=== PATIENT | female | born 1970 | race Caucasian/White ===

== ENCOUNTER 2018-02-19 23:15 | Emergency (ER) | payer BC, MEDICAID ==
[2018-02-19] MEDS ORDERED: Acetaminophen TAB* 325 MG PO ONE (23:32)
[2018-02-19] MEDS ORDERED: Ibuprofen TAB* 800 MG PO ONE (23:32)
--- NOTE | 2018-02-19 23:33 | ED ---
HPI Febrile Illness - HPI Summary HPI Summary: 48 year old female presents with fever today. Mom was just diagnosed with flu and she was present in the ER with her mom all day. She states she went home and started develop a cough and fever. She feels like she got hit by a train. She admits to muscle aches and nausea. She admits to headache. She admits to dizziness. States she's had no appetite. She denies any bowel pain. Cough is productive. She denies any chest pain or shortness breath. She has no medical conditions. She did not get a flu shot this year. has only had a couple hours of symptoms. took some robitussin. - History of Current Complaint Chief Complaint: EDFluSymptoms Time Seen by Provider: 02/19/18 23:24 Pain Intensity: 8 - Allergy/Home Medications Allergies/Adverse Reactions: Allergies Allergy/AdvReac Type Severity Reaction Status Date / Time raspberry Allergy Anaphylatic Verified 02/19/18 23:16 Shock strawberry Allergy Anaphylatic Verified 02/19/18 23:16 Shock PMH/Surg Hx/FS Hx/Imm Hx Endocrine/Hematology History: Denies: Hx Anticoagulant Therapy Cardiovascular History: Denies: Hx Myocardial Infarction History: Reports: Other Problems/Disorders - Per pt, painful menses, and "two large tumor". Infectious Disease History: No Infectious Disease History: Denies: Traveled Outside the [place] in Last 30 Days - Family History Known Family History: Positive: None Family History: Reviewed and n/c. - Social History Alcohol Use: Occasionally Hx Substance Use: No Substance Use Type: Reports: None Smoking Status (MU): Never Smoked Tobacco Review of Systems Positive: Fever Positive: Cough Positive: Nausea. Negative: Vomiting Positive: Myalgia Positive: Headache All Other Systems Reviewed And Are Negative: Yes Physical Exam Triage Information Reviewed: Yes Vital Signs On Initial Exam: Initial Vitals Temp Pulse Resp BP Pulse Ox 102.4 F 67 18 142/92 97 02/19/18 23:15 02/19/18 23:15 02/19/18 23:15 02/19/18 23:15 02/19/18 23:15 Vital Signs Reviewed: Yes Appearance: Positive: Well-Appearing Skin: Positive: Warm, Dry Head/Face: Positive: Normal Head/Face Inspection Eyes: Positive: Normal, EOMI, CYNTHIA, Conjunctiva Clear ENT: Positive: Normal ENT inspection, Pharynx normal, TMs normal Respiratory/Lung Sounds: Positive: Clear to Auscultation, Breath Sounds Present Cardiovascular: Positive: Normal, RRR Abdomen Description: Positive: Nontender, Soft Bowel Sounds: Positive: Present Musculoskeletal: Positive: Normal Neurological: Positive: Normal Psychiatric: Positive: Normal Diagnostics - Vital Signs Vital Signs Temp Pulse Resp BP Pulse Ox 02/19/18 23:15 102.4 F 67 18 142/92 97 - Laboratory Lab Statement: Any lab studies that have been ordered have been reviewed, and results considered in the medical decision making process. Course/Dx - Course Course Of Treatment: 48 year old female presents with fever today. Mom was just diagnosed with flu and she was present in the ER with her mom all day. She states she went home and started develop a cough and fever. She feels like she got hit by a train. She admits to muscle aches and nausea. She admits to headache. She admits to dizziness. States she's had no appetite. She denies any bowel pain. Cough is productive. She denies any chest pain or shortness breath. She has no medical conditions. She did not get a flu shot this year. On exam lungs clear to auscultation. Abdomen soft nontender. Pharynx normal. Sinus congestion noted. Flu positive. will place on tamiflu. patient understand and agrees with plan. - Febrile Illness Differential Diagnoses: Pneumonia, Sepsis, Viremia - Diagnoses Provider Diagnoses: Influenza Discharge - Sign-Out/Discharge Documenting (check all that apply): Patient Departure - Discharge Plan Condition: Good Disposition: HOME Prescriptions: Oseltamivir CAP* [Tamiflu CAP*] 75 mg PO BID #9 cap Patient Education Materials: Influenza (ED) Referrals: No Primary Care Phys,NOPCP [Primary Care Provider] - Additional Instructions: Take Tamiflu twice for 5 days first dose given in ED Take Tylenol and ibuprofen for muscle aches and fever every 6 hours Saline rinse can be used multiple times a day for nasal congestion Use humidifier in room or place bowls of warm water around room for cough Try to drink fluids every hour and eat a small snack every 3 hours Return to ED if develop any new or worsening symptoms - Billing Disposition and Condition Condition: GOOD Disposition: Home
[2018-02-19] MEDS ORDERED: Oseltamivir CAP* 75 MG CAP PO ONE (23:51)
[2018-02-20 00:20] VITALS: BP 139/83
== END 2018-02-20 00:19 | disposition home or self-care (01) ==
LOC: ED 23:15
DX: J10.1 Influenza due to other identified influenza virus with other respiratory manifestations (principal)
CPT/HCPCS: 99283; A9270-GY